=== PATIENT | male | born 1940 | race Caucasian/White ===

== ENCOUNTER 2018-10-06 21:54 | Emergency (ER) | payer MEDICARE, BC ==
[2018-10-06] MEDS ORDERED: NS(*) 0.9% 1000 ML BAG 1,000 ML IV ONE ×2 (21:57→23:10)
[2018-10-06 22:06] LABS: PLATELET COUNT, AUTOMATED 300 K/uL (150-450)
--- NOTE | 2018-10-06 22:11 | ER Report ---
History and Physical Time Seen By MD: 21:57 Hx. of Stated Complaint: SEIZURE LIKE ACTIVITY. POSSIBLE VFIB. HPI/ROS CHIEF COMPLAINT: Syncope,? Seizure HISTORY OF PRESENT ILLNESS: 77-year-old male traveling from [place], [place] all day long arrived here in [place] was staying in a hotel. He went into the bathroom and had a syncopal episode. His caught him and lowered him to the floor. He came to and EMS arrived after she called 911, and he subsequently had another episode where he had a syncopal episode. EMS had him on the monitor at that time they noted a heart rate in the 40s and potentially some ventricular tachycardia on the monitor. Patient has no known history of cardiac disease. Patient has a history of hypertension on numerous medications, type II diabetes on metformin and trazodone to help him sleep. Fingerstick glucose by EMS was 107. Patient did have some shaking motion when he passed out but does not sound like a true seizure. He was not post ictal. On arrival to the ER. He is alert and oriented. He is hypotensive. Blood pressure on EMS monitor is 97/63. She received a 300 mL bolus of normal saline by EMS in route. He's been complaining of back pain all day long. I'll traveling in the car. Patient denies recent illness such as rhinitis, sore throat, coughing, fever, chills, nausea or vomiting. Patient was incontinent of stool during his syncopal episode. Patient's primary care doctor is Cyrus Santos in [place], [place] phone number [phone]. Patient reports a history of vertigo in the past and had what sounds like vestibular treatment. His symptoms completely resolved. This does not feel like that to him. Patient undergoing physical therapy for lower ext remity problems that sound radicular in related to degenerative disc disease. REVIEW OF SYSTEMS: Respiratory: No cough, no dyspnea. Cardiovascular: No chest pain, no palpitations. Gastrointestinal: No vomiting, no abdominal pain. Musculoskeletal: No back pain. Allergies: Coded Allergies: Sulfa (Sulfonamide Antibiotics) (Verified Allergy, Unknown, 10/06/18) Home Meds Reported Medications Atorvastatin Calcium (LIPITOR) 10 Mg Tablet, 1 TAB PO QDAY, TAB 10/06/18 Trazodone Hcl (TRAZODONE HCL) 50 Mg Tablet, 50 MG PO QHS 10/06/18 Metformin Hcl (METFORMIN HCL) 500 Mg Tablet, 1 TAB PO QDAY, TAB 10/06/18 Hydrochlorothiazide (HYDROCHLOROTHIAZIDE) 12.5 Mg Capsule, 1 TAB PO QDAY, CAPSULE 10/06/18 Losartan Potassium (LOSARTAN POTASSIUM) 50 Mg Tablet, 50 MG PO QDAY 10/06/18 Amlodipine Besylate (AMLODIPINE BESYLATE) 5 Mg Tablet, 1 TAB PO QDAY, TAB 10/06/18 Past Medical/Surgical History Hypertension, hyperlipidemia, Type II diabetes, not on insulin, insomnia Constitutional Vital Sign - Last 24 Hours 10/06/18 10/06/18 10/06/18 10/06/18 21:54 21:55 21:58 22:00 Temp 98.4 Pulse 77 69 Resp 19 16 B/P (MAP) 97/74 (82) 125/60 125/60 (81) Pulse Ox 100 O2 Delivery Room Air 10/06/18 10/06/18 10/06/18 10/06/18 22:09 22:24 22:30 22:39 Pulse 70 62 64 Resp 10 12 18 B/P (MAP) 108/58 (75) Pulse Ox 92 86 91 10/06/18 10/06/18 10/06/18 10/06/18 22:54 23:00 23:09 23:24 Pulse 64 63 65 Resp 16 10 18 B/P (MAP) 128/54 (78) Pulse Ox 95 97 96 10/06/18 10/06/18 10/06/18 10/06/18 23:30 23:34 23:35 23:50 Pulse 69 75 Resp 23 15 B/P (MAP) 111/46 (67) Pulse Ox 95 93 O2 Flow Rate 2.0 10/07/18 10/07/18 10/07/18 10/07/18 00:00 00:05 00:20 00:44 Pulse 71 70 Resp 12 19 B/P (MAP) 127/54 (78) 117/71 (86) Pulse Ox 87 87 10/07/18 10/07/18 10/07/18 10/07/18 00:50 01:00 01:05 01:10 Pulse 70 72 75 Resp 14 8 10 B/P (MAP) 112/47 (68) Pulse Ox 90 86 88 10/07/18 10/07/18 10/07/18 5/8/19 01:25 01:30 01:55 02:00 Pulse 70 76 Resp 18 19 B/P (MAP) 104/61 (75) 121/68 (85) Pulse Ox 89 100 10/07/18 10/07/18 10/07/18 10/07/18 02:10 02:13 02:30 02:33 Pulse 73 74 77 Resp 19 16 16 B/P (MAP) 125/55 (78) Pulse Ox 100 100 91 10/07/18 10/07/18 03:00 03:18 Pulse 75 Resp 13 B/P (MAP) 113/70 (84) Pulse Ox 100 Intake and Output 10/06/18 10/06/18 10/07/18 15:00 23:00 07:00 Intake Total 2000 ml Balance 2000 ml Physical Exam General Appearance: The patient is alert, has no immediate need for airway protection and no current signs of toxicity. Vital signs stable except for notably hypotensive by EMS. HEENT: Pupils equal and round no injection. TMs normal, oropharynx no redness or exudate, mucous. Membranes are moist Respiratory: Chest is non tender, lungs are clear to auscultation. No wheezing or rails, no chest wall tenderness Cardiac: regular rate and rhythm, no murmur Gastrointestinal: Abdomen is soft and non tender, no masses, bowel sounds normal. Musculoskeletal: Neck: Neck is supple and non tender. Extremities have full range of motion and are non tender. No edema, no calf tenderness Skin: No rashes or lesions. DIFFERENTIAL DIAGNOSIS: After history and physical exam differential diagnosis was considered for syncope including but not limited to vasovagal syncope, arrhythmia, dehydration, and blood loss. Medical Decision Making Data Points Result Diagram: 10/06/18214710/06/182147 Laboratory Hematology Test 10/06/18 21:48 10/06/18 22:00 10/06/18 23:18 Red Blood Count 4.86 M/uL (4.00-5.60) Mean Corpuscular Volume 88.5 fL (80.0-96.0) Mean Corpuscular Hemoglobin 30.4 pg (26.0-33.0) Mean Corpuscular Hemoglobin Concent 34.4 g/dL (32.0-36.0) Red Cell Distribution Width 13.3 % (11.5-14.5) Mean Platelet Volume 7.3 fL (7.2-11.1) Neutrophils (%) (Auto) 60.6 % (39.4-72.5) Lymphocytes (%) (Auto) 28.9 % (17.6-49.6) Monocytes (%) (Auto) 8.2 % (4.1-12.4) Eosinophils (%) (Auto) 1.7 % (0.4-6.7) Basophils (%) (Auto) 0.6 % (0.3-1.4) Nucleated RBC Relative Count (auto) 0.0 /100WBC Neutrophils # (Auto) 6.7 K/uL (2.0-7.4) Lymphocytes # (Auto) 3.2 K/uL (1.3-3.6) Monocytes # (Auto) 0.9 K/uL (0.3-1.0) Eosinophils # (Auto) 0.2 K/uL (0.0-0.5) Basophils # (Auto) 0.1 K/uL (0.0-0.1) Nucleated RBC Absolute Count (auto) 0.01 K/uL Prothrombin Time 13.2 seconds (12.0-14.4) Prothromb Time International Ratio 1.00 Activated Partial Thromboplast Time 30 seconds (23-35) D-Dimer Quantitative (PE/DVT) 0.40 ug/ml (0-0.50) Sodium Level 140 mmol/L (137-145) Potassium Level 3.2 mmol/L (3.5-5.0) Chloride Level 99 mmol/L (98-107) Carbon Dioxide Level 30 mmol/L (22-30) Blood Urea Nitrogen 19 mg/dl (9-21) Creatinine 1.20 mg/dl (0.66-1.25) Glomerular Filtration Rate Calc 58.6 Random Glucose 135 mg/dl (75-110) Calcium Level 9.2 mg/dl (8.4-10.2) Total Bilirubin 0.6 mg/dl (0.2-1.3) Aspartate Amino Transf (AST/SGOT) 29 U/L (0-35) Alanine Aminotransferase (ALT/SGPT) 27 U/L (0-56) Alkaline Phosphatase 61 U/L (0-126) Troponin I < 0.012 ng/ml B-Type Natriuretic Peptide 15 pg/ml (0-100) Total Protein 7.1 g/dl (6.3-8.2) Albumin 4.0 g/dl (3.5-5.0) Lactate 2.2 mmol/L (0.7-2.1) Urine Color Brynn Urine Clarity Cloudy Urine pH 5.0 pH (4.8-9.5) Urine Specific [place] 1.032 Urine Protein 100 mg/dL (NEGATIVE) Urine Glucose (UA) Negative mg/dL (NEGATIVE) Urine Ketones Negative mg/dL (NEGATIVE) Urine Blood Negative (NEGATIVE) Urine Nitrite Negative (NEGATIVE) Urine Bilirubin Moderate (NEGATIVE) Urine Urobilinogen 0.2 mg/dL (0.2-1.9) Urine Leukocyte Esterase Trace (NEGATIVE) Urine RBC 3 /HPF (0-2/HPF) Urine WBC 10 /HPF (0-5/HPF) Urine Squamous Epithelial Cells Many /LPF (</=FEW) Urine Bacteria Negative /HPF (NONE-FEW) Urine Hyaline Casts Few /LPF (NONE-FEW) Urine Granular Casts Many /LPF (NONE) Urine Mucus Few /HPF (NONE-FEW) Chemistry Test 10/06/18 21:48 10/06/18 22:00 10/06/18 23:18 White Blood Count 11.1 k/uL (4.5-11.0) Red Blood Count 4.86 M/uL (4.00-5.60) Hemoglobin 14.8 g/dL (14.0-18.0) Hematocrit 43.0 % (42.0-52.0) Mean Corpuscular Volume 88.5 fL (80.0-96.0) Mean Corpuscular Hemoglobin 30.4 pg (26.0-33.0) Mean Corpuscular Hemoglobin Concent 34.4 g/dL (32.0-36.0) Red Cell Distribution Width 13.3 % (11.5-14.5) Platelet Count 300 K/uL (150-450) Mean Platelet Volume 7.3 fL (7.2-11.1) Neutrophils (%) (Auto) 60.6 % (39.4-72.5) Lymphocytes (%) (Auto) 28.9 % (17.6-49.6) Monocytes (%) (Auto) 8.2 % (4.1-12.4) Eosinophils (%) (Auto) 1.7 % (0.4-6.7) Basophils (%) (Auto) 0.6 % (0.3-1.4) Nucleated RBC Relative Count (auto) 0.0 /100WBC Neutrophils # (Auto) 6.7 K/uL (2.0-7.4) Lymphocytes # (Auto) 3.2 K/uL (1.3-3.6) Monocytes # (Auto) 0.9 K/uL (0.3-1.0) Eosinophils # (Auto) 0.2 K/uL (0.0-0.5) Basophils # (Auto) 0.1 K/uL (0.0-0.1) Nucleated RBC Absolute Count (auto) 0.01 K/uL Prothrombin Time 13.2 seconds (12.0-14.4) Prothromb Time International Ratio 1.00 Activated Partial Thromboplast Time 30 seconds (23-35) D-Dimer Quantitative (PE/DVT) 0.40 ug/ml (0-0.50) Glomerular Filtration Rate Calc 58.6 Calcium Level 9.2 mg/dl (8.4-10.2) Total Bilirubin 0.6 mg/dl (0.2-1.3) Aspartate Amino Transf (AST/SGOT) 29 U/L (0-35) Alanine Aminotransferase (ALT/SGPT) 27 U/L (0-56) Alkaline Phosphatase 61 U/L (0-126) Troponin I < 0.012 ng/ml B-Type Natriuretic Peptide 15 pg/ml (0-100) Total Protein 7.1 g/dl (6.3-8.2) Albumin 4.0 g/dl (3.5-5.0) Lactate 2.2 mmol/L (0.7-2.1) Urine Color Brynn Urine Clarity Cloudy Urine pH 5.0 pH (4.8-9.5) Urine Specific [place] 1.032 Urine Protein 100 mg/dL (NEGATIVE) Urine Glucose (UA) Negative mg/dL (NEGATIVE) Urine Ketones Negative mg/dL (NEGATIVE) Urine Blood Negative (NEGATIVE) Urine Nitrite Negative (NEGATIVE) Urine Bilirubin Moderate (NEGATIVE) Urine Urobilinogen 0.2 mg/dL (0.2-1.9) Urine Leukocyte Esterase Trace (NEGATIVE) Urine RBC 3 /HPF (0-2/HPF) Urine WBC 10 /HPF (0-5/HPF) Urine Squamous Epithelial Cells Many /LPF (</=FEW) Urine Bacteria Negative /HPF (NONE-FEW) Urine Hyaline Casts Few /LPF (NONE-FEW) Urine Granular Casts Many /LPF (NONE) Urine Mucus Few /HPF (NONE-FEW) Coagulation Test 10/06/18 21:48 Prothrombin Time 13.2 seconds Prothromb Time International Ratio 1.00 Activated Partial Thromboplast Time 30 seconds D-Dimer Quantitative (PE/DVT) 0.40 ug/ml Urinalysis Test 10/06/18 23:18 Urine Color Brynn Urine Clarity Cloudy Urine pH 5.0 pH (4.8-9.5) Urine Specific [place] 1.032 Urine Protein 100 mg/dL (NEGATIVE) Urine Glucose (UA) Negative mg/dL (NEGATIVE) Urine Ketones Negative mg/dL (NEGATIVE) Urine Blood Negative (NEGATIVE) Urine Nitrite Negative (NEGATIVE) Urine Bilirubin Moderate (NEGATIVE) Urine Urobilinogen 0.2 mg/dL (0.2-1.9) Urine Leukocyte Esterase Trace (NEGATIVE) Urine RBC 3 /HPF (0-2/HPF) Urine WBC 10 /HPF (0-5/HPF) Urine Squamous Epithelial Cells Many /LPF (</=FEW) Urine Bacteria Negative /HPF (NONE-FEW) Urine Hyaline Casts Few /LPF (NONE-FEW) Urine Granular Casts Many /LPF (NONE) Urine Mucus Few /HPF (NONE-FEW) Microbiology Microbiology Date/Time Source Procedure Growth Status 10/06/18 23:18 Clean Catch Midstream Ur Urine Culture - Preliminary NO GROWTH SO FAR, SET LATE. REINCUBATED Resulted EKG/Imaging EKG Interpretation 12 lead EK Rhythm: Normal sinus rhythm at 72 bpm [place]: normal QRS: normal, left anterior fascicular block ST segments: normal, no gross ischemia or dysrhythmia noted. No old EKGs for comparison Imaging X-ray: Single view portable chest x-ray was obtained. I viewed the images myself on the PACS system. My interpretation of the images is: No infiltrate, no effusion, normal mediastinum. The radiologist interpretation had no clinically significant variation from this interpretation. Results: CT scan of the head without contrast was obtained. The results of the study are CT BRAIN NO CONTRAST HISTORY: Weakness and syncope. Low back pain with right lower extremity radicular symptoms. COMPARISON: None. CT lumbar spine was performed at the same time as the current examination. TECHNIQUE: Axial images were obtained from the skull base to the vertex without contrast. Sagittal and coronal reformats were performed. One of the following dose optimization techniques was utilized in the performance of this exam: Automated exposure control; adjustment of the mA and/or kV according to the patient's size; or use of an iterative reconstruction technique. Specific details can be referenced in the facility's radiology CT exam operational policy. CONTRAST: None. FINDINGS: Brain: No intracranial hemorrhage, mass, or edema. Overlying the superior right parietal lobe is a 1.6 cm in thickness collection that is isointense to CSF (coronal image 79, axial image 64, and sagittal image 6). There is mild calcification of the internal carotid arteries. Sulci, ventricles, and cisterns: Sulci are prominent, compatible with mild atrophy, normal for age. The ventricles are normal in size and configuration. The basilar cisterns are patent. Osseous structures: Intact. Prominent external occipital protuberance (sagittal image 46 for example). Paranasal sinuses and mastoids: There is mild mucosal thickening of the ethmoid, maxillary, and right sphenoid sinuses. There are mucus retention pseudocysts within the left maxillary sinus. Leftward nasal septal deviation. There is opacification of a few of the inferior right mastoid air cells, likely a benign effusion. There is under-pneumatization of the left mastoid. Orbits and soft tissues: Changes of bilateral lens surgery. There is a small hematoma of the left occipital scalp (image 21 series 2). IMPRESSION: 1. Small left occipital scalp hematoma, but no acute intracranial abnormality. 2. Subdural collection isointense to CSF overlies the right parietal lobe and may be a chronic subdural hematoma versus subdural hygroma. It measures 1.6 cm maximal thickness. 3. Sinus disease. The study was read by the radiologist. I viewed the images myself on the PACS system. Results: CT scan of the lumbar spine without contrast was obtained. The results of the study are CT VERTEBRA LUMBAR (NON CON) HISTORY: Weakness. Syncope. Low back pain and right lower extremity radicular symptoms. COMPARISON: None. CT brain was performed at the same time as the current examination. TECHNIQUE: Axial images were obtained through the lumbar spine. Coronal and sagi ttal reformatted images were obtained from the axial source data. One of the following dose optimization techniques was utilized in the performance of this exam: Automated exposure control; adjustment of the mA and/or kV according to the patient's size; or use of an iterative reconstruction technique. Specific details can be referenced in the facility's radiology CT exam operational policy. CONTRAST: None. FINDINGS: Musculoskeletal/vertebra: No acute osseous abnormality. There are numerous Schmorl nodes deforming vertebral endplates of the visible lower thoracic and entire lumbar spine. There is 2 mm retrolisthesis of L5 compared to S1. There are vacuum clefts throughout the visible thoracic and lumbar spine, with the exception of L1-2. There is mild multilevel degenerative change of the spine. T11-12: There is minimal circumferential disc osteophyte complex. No spinal canal or foraminal stenosis. T12-L1: There is minimal posterior disc osteophyte complex. No spinal canal or foraminal stenosis. L1-2: There is minimal posterior disc osteophyte complex. No spinal canal or foraminal stenosis. L2-3: There are circumferential disc osteophyte complex, degenerative facet d isease, and facet and ligamentum flavum hypertrophy that together contribute to cause mild narrowing of the spinal canal. No foraminal stenosis. L3-4: There are circumferential disc osteophyte complex, degenerative facet disease, and facet and ligamentum flavum hypertrophy that together contribute to cause mild narrowing of the spinal canal. There are mild bilateral foraminal stenoses. L4-5: There are circumferential disc osteophyte complex, degenerative facet disease, and facet and ligamentum flavum hypertrophy that together contribute to cause mild narrowing of the spinal canal. There is moderate right foraminal stenosis. There is mild to moderate left foraminal stenosis. L5-S1: There are circumferential disc osteophyte complex, degenerative facet disease, and facet hypertrophy. There is mild narrowing of the spinal canal. There are severe right and moderate to severe left foraminal stenoses. Visualized retroperitoneal / abdominal structures: There is mild atelectasis at the lung bases. There is mild aortoiliac calcification without aneurysm. There is an 8mm exophytic lesion arising from the posterior right lobe of the liver (image 44 series 2). It is isointense to hepatic parenchyma. There is mild bilateral perinephric stranding. There are left parapelvic cysts. No hyd ronephrosis. IMPRESSION: 1. Degenerative changes as detailed above without acute osseous abnormality. 2. There are severe right and moderate to severe left foraminal stenoses at L5- S1. 3. Moderate right and mild to moderate left foraminal stenoses at L4-5, and mild bilateral foraminal stenoses at L3-4. 4. Degenerative changes cause mild narrowing of the spinal canal from L2-3 through L5-S1. 5. 8 mm exophytic hepatic lesion is isointense to hepatic parenchyma but is of uncertain etiology. If patient has a history of malignancy, or if it would alter clinical management, follow-up CT or MR liver mass protocol could be performed to try to further evaluate. The study was read by the radiologist. I viewed the images myself on the PACS system. ED Course/Re-evaluation Clinical Indication for ER IV: Hydration, IV Access ED Course Patient was admitted to an examination room. H&P was done. The differential diagnoses was considered. Patient with syncope after traveling only in a car. Patient was hypotensive on arrival. He was fluid resuscitated with normal saline. There was no ectopy noted on the cardiac rehabilitation specialist. His EKG was unremarkable. Diagnostic studies show normal WBC count, troponin, d-dimer, BNP. His chest x-rays unremarkable. Patient was hydrated with 2 L of normal saline. At that point, we attempted to ambulate him, he was unsteady on his feet. Complaining of weakness in his lower extremities. I spoke with the patient at length. Further diagnostic evaluation including a head CT and lumbar spine CTs were performed. The CT of the head shows a chronic subdural versus hygroma and his lumbar spine shows extensive generative disc disease with foraminal narrowing likely causing compression of his sacral nerves. Unable to assess what that likely etiology of his weakness is. It could be related to that, subdural versus riding in a car all day with compression of his degenerative disc disease. Patient needs neurosurgical consultation which is unavailable in our facility. We will transfer him to [facility] at his request. Patient states their family in the area. The patient's would stay with. 10/07/2018 2:41:18 am case was discussed with Dr. Moisés Crandall hospitalist at [facility] who accepts the patient for transfer to his facility. Decision to Disposition Date: October 06, 2018 Decision to Disposition Time: 01:58 Depart Departure Latest Vital Signs Vital Signs Date Time Temp Pulse Resp B/P (MAP) Pulse Ox O2 Delivery O2 Flow Rate FiO2 10/07/18 03:18 75 13 100 10/07/18 03:00 113/70 (84) 10/06/18 23:34 2.0 10/06/18 21:58 98.4 Room Air Impression: Primary Impression: Vasovagal syncope Additional Impressions: Back pain Hypertension Type II diabetes mellitus Weakness Chronic subdural hematoma Lumbar degenerative disc disease Condition: Improved Disposition: XFER TO [facility]UTE [facility] Problem Qualifiers Additional Impressions: Back pain Back pain location: low back pain Chronicity: acute Back pain laterality: midline Sciatica presence: without sciatica Qualified Codes: M54.5 - Low back pain Hypertension Hypertension type: essential hypertension Qualified Codes: I10 - Essential (primary) hypertension Type II diabetes mellitus Diabetes mellitus senior care insulin use: without intermediate card tender use Diabetes mellitus complication status: without complication Qualified Codes: E11.9 - Type 2 diabetes mellitus without complications BAL JARAMILLO DO October 06, 2018 22:11
--- NOTE | 2018-10-06 22:23 | EKG ---
FACILITY: [facility] PATIENT NAME: JOHNNY RAO : [id number] MR: [id number] V: [id number] EXAM DATE: ORDERING PHYSICIAN: BAL JARAMILLO TECHNOLOGIST: LASHON Test Reason : SYNCOPE Blood Pressure : / mmHG Vent. Rate : 072 BPM Atrial Rate : 072 BPM P-R Int : 182 ms QRS Dur : 112 ms QT Int : 430 ms P-R-T Axes : 024 -61 060 degrees QTc Int : 470 ms Sinus rhythm Left axis Nonspecific interventricular conduction delay Abnormal ECG No previous ECGs available Confirmed by KEVIN ALONSO ([id number]) on 10/06/2018 10:47:09 PM Referred By: Confirmed By:KEVIN ALONSO
--- NOTE | 2018-10-06 22:46 | RADIOLOGY IMAGING REPORT ---
FACILITY: [facility] PATIENT NAME: Grabiel Patterson : 1940 MR: [id number] V: [id number] EXAM DATE: ORDERING PHYSICIAN: BAL JARAMILLO TECHNOLOGIST: [place] [facility] [place]: Grabiel Patterson : 1940 Visit/Account:[id number] Date of Sevice: 10/06/2018 PORTABLE CHEST: Indication: Syncope. Technique: A single frontal film was obtained. Comparison: None available. Skeletal and soft tissue structures: There are mild degenerative changes in the shoulders and spine. No acute skeletal deformity is identified. Heart and mediastinum: Within normal limits. Lung holguin: Well-expanded and clear. No focal opacities. No vascular congestion. Pleural spaces: Unremarkable. Impression: No acute process. Report Dictated By: Vin Tolliver MD at 10/06/2018 10:41 PM Report E-Signed By: Vin Tolliver MD at 10/06/2018 10:42 PM WSN:[id number]
[2018-10-06] MEDS ORDERED: AMLO-125 PO (22:48)
[2018-10-06] MEDS ORDERED: LOSA50TA80 PO (22:48)
[2018-10-06] MEDS ORDERED: TRAZ50TA34 PO (22:48)
[2018-10-06] MEDS ORDERED: METF-450 PO (22:48)
[2018-10-06] MEDS ORDERED: HYDR12.556 PO (22:48)
[2018-10-06] MEDS ORDERED: ATOR10TA24 PO (22:48)
[2018-10-06] MEDS ORDERED: ACETAMINOPHEN 325 MG TAB PO ONE (23:05)
[2018-10-06] MEDS ORDERED: KETOROLAC 15 MG/ML VIAL IVP ONE (23:05)
[2018-10-06] MEDS ORDERED: CEPHALEXIN MONO 500 MG CAP PO ONE (23:50)
--- NOTE | 2018-10-07 01:26 | RADIOLOGY IMAGING REPORT ---
FACILITY: [facility] PATIENT NAME: Grabiel Patterson : 1940 MR: [id number] V: [id number] EXAM DATE: ORDERING PHYSICIAN: BAL JARAMILLO TECHNOLOGIST: Location: [facility] [place] Patient: Grabiel Patterson : 1940 Visit/Account:[id number] Date of Sevice: 10/07/2018 CT BRAIN NO CONTRAST HISTORY: Weakness and syncope. Low back pain with right lower extremity radicular symptoms. COMPARISON: None. CT lumbar spine was performed at the same time as the current examination. TECHNIQUE: Axial images were obtained from the skull base to the vertex without contrast. Sagittal an d coronal reformats were performed. One of the following dose optimization techniques was utilized in the performance of this exam: Autom ated exposure control; adjustment of the mA and/or kV according to the patient's size; or use of an i terative reconstruction technique. Specific details can be referenced in the facility's radiology CT exam operational policy. CONTRAST: None. FINDINGS: Brain: No intracranial hemorrhage, mass, or edema. Overlying the superior right parietal lobe is a 1. 6 cm in thickness collection that is isointense to CSF (coronal image 79, axial image 64, and sagitta l image 6). There is mild calcification of the internal carotid arteries. Sulci, ventricles, and cisterns: Sulci are prominent, compatible with mild atrophy, normal for age. T he ventricles are normal in size and configuration. The basilar cisterns are patent. Osseous structures: Intact. Prominent external occipital protuberance (sagittal image 46 for example) . Paranasal sinuses and mastoids: There is mild mucosal thickening of the ethmoid, maxillary, and right sphenoid sinuses. There are mucus retention pseudocysts within the left maxillary sinus. Leftward na naveen septal deviation. There is opacification of a few of the inferior right mastoid air cells, likely a benign effusion. There is under-pneumatization of the left mastoid. Orbits and soft tissues: Changes of bilateral lens surgery. There is a small hematoma of the left occ ipital scalp (image 21 series 2). IMPRESSION: 1. Small left occipital scalp hematoma, but no acute intracranial abnormality. 2. Subdural collection isointense to CSF overlies the right parietal lobe and may be a chronic subdur al hematoma versus subdural hygroma. It measures 1.6 cm maximal thickness. 3. Sinus disease. Report Dictated By: Leidy Holder at 10/07/2018 1:11 AM Report E-Signed By: Leidy Holder at 10/07/2018 1:22 AM WSN:[id number]
--- NOTE | 2018-10-07 01:40 | RADIOLOGY IMAGING REPORT ---
FACILITY: [facility] - [place] PATIENT NAME: Grabiel Patterson : 1940 MR: [id number] V: [id number] EXAM DATE: ORDERING PHYSICIAN: BAL JARAMILLO TECHNOLOGIST: Location: [facility] [place] Patient: Grabiel Patterson : 1940 Visit/Account:[id number] Date of Sevice: 10/07/2018 CT VERTEBRA LUMBAR (NON CON) HISTORY: Weakness. Syncope. Low back pain and right lower extremity radicular symptoms. COMPARISON: None. CT brain was performed at the same time as the current examination. TECHNIQUE: Axial images were obtained through the lumbar spine. Coronal and sagittal reformatted imag es were obtained from the axial source data. One of the following dose optimization techniques was utilized in the performance of this exam: Autom ated exposure control; adjustment of the mA and/or kV according to the patient's size; or use of an i terative reconstruction technique. Specific details can be referenced in the facility's radiology CT exam operational policy. CONTRAST: None. FINDINGS: Musculoskeletal/vertebra: No acute osseous abnormality. There are numerous Schmorl nodes deforming ve rtebral endplates of the visible lower thoracic and entire lumbar spine. There is 2 mm retrolisthesis of L5 compared to S1. There are vacuum clefts throughout the visible thoracic and lumbar spine, with the exception of L1-2. There is mild multilevel degenerative change of the spine. T11-12: There is minimal circumferential disc osteophyte complex. No spinal canal or foraminal stenos is. T12-L1: There is minimal posterior disc osteophyte complex. No spinal canal or foraminal stenosis. L1-2: There is minimal posterior disc osteophyte complex. No spinal canal or foraminal stenosis. L2-3: There are circumferential disc osteophyte complex, degenerative facet disease, and facet and li gamentum flavum hypertrophy that together contribute to cause mild narrowing of the spinal canal. No foraminal stenosis. L3-4: There are circumferential disc osteophyte complex, degenerative facet disease, and facet and li gamentum flavum hypertrophy that together contribute to cause mild narrowing of the spinal canal. The re are mild bilateral foraminal stenoses. L4-5: There are circumferential disc osteophyte complex, degenerative facet disease, and facet and li gamentum flavum hypertrophy that together contribute to cause mild narrowing of the spinal canal. The re is moderate right foraminal stenosis. There is mild to moderate left foraminal stenosis. L5-S1: There are circumferential disc osteophyte complex, degenerative facet disease, and facet hyper trophy. There is mild narrowing of the spinal canal. There are severe right and moderate to severe le ft foraminal stenoses. Visualized retroperitoneal / abdominal structures: There is mild atelectasis at the lung bases. There is mild aortoiliac calcification without aneurysm. There is an 8mm exophytic lesion arising from the posterior right lobe of the liver (image 44 series 2). It is isointense to hepatic parenchyma. There is mild bilateral perinephric stranding. There are left parapelvic cysts. No hydronephrosis. IMPRESSION: 1. Degenerative changes as detailed above without acute osseous abnormality. 2. There are severe right and moderate to severe left foraminal stenoses at L5-S1. 3. Moderate right and mild to moderate left foraminal stenoses at L4-5, and mild bilateral foraminal stenoses at L3-4. 4. Degenerative changes cause mild narrowing of the spinal canal from L2-3 through L5-S1. 5. 8 mm exophytic hepatic lesion is isointense to hepatic parenchyma but is of uncertain etiology. If patient has a history of malignancy, or if it would alter clinical management, follow-up CT or MR li uriel mass protocol could be performed to try to further evaluate. Report Dictated By: Leidy Holder at 10/07/2018 1:22 AM Report E-Signed By: Leidy Holder at 10/07/2018 1:36 AM WSN:[id number]
[2018-10-07 03:00] VITALS: BP 113/70
== END 2018-10-07 03:40 | disposition short-term general hospital (02) ==
LOC: ER 21:58
DX: R55 Syncope and collapse (principal); M54.5 Low back pain; I10 Essential (primary) hypertension; E11.9 Type 2 diabetes mellitus without complications; R53.1 Weakness; I62.03 Nontraumatic chronic subdural hemorrhage; M51.36 Other intervertebral disc degeneration, lumbar region
CPT/HCPCS: 70450; 71045; 72131; 81001; 83605; 83880; 84484; 85025; 85379; 85610; 85730; 87088; 93005; 96361; 96374; 99285; A9270; J1885; J7030; 82040; 82247; 82310; 82374; 82435; 82565; 82947; 84075; 84132; 84155; 84295; 84450; 84460; 84520

== ENCOUNTER → 2018-10-06 | Outpatient (CLI) | payer MEDICARE, BC ==
[~2018-10-06] MED LIST: AMLO-125 PO; ATOR10TA24 PO; HYDR12.556 PO; LOSA50TA80 PO; METF-450 PO; TRAZ50TA34 PO
== END ==
LOC: AMB 21:24
PROVIDERS: ATTEND Nurse Practitioner
DX: I95.9 Hypotension, unspecified (principal); R41.82 Altered mental status, unspecified; R00.1 Bradycardia, unspecified
CPT/HCPCS: A0425; A0427

== ENCOUNTER → 2018-10-07 | Outpatient (CLI) | payer MEDICARE, BC | LOC: AMB 03:21 | PROVIDERS: ATTEND Nurse Practitioner | DX: S06.5X9A Traumatic subdural hemorrhage with loss of consciousness of unspecified duration, initial encounter (principal); R53.1 Weakness | CPT/HCPCS: A0425; A0426 ==